=== PATIENT | female | born 1955 | race Caucasian/White ===

== ENCOUNTER → 2019-04-30 09:38 | Outpatient (CLI) | payer BC ==
[2013-07-10 06:23] VITALS: BMI 27.4
--- NOTE | ~2019-04-30 | ST ---
PATIENT:MINISTERIO SERRANO MEDICAL RECORD: [id number] SEX: F LOCATION:[facility] ORDER #: ADMISSION DATE: 04/30/19 AGE OF PATIENT: 63 REFERRING PHYSICIAN: INTERPRETING PHYSICIAN: MEHUL REINOSO MD DATE OF SERVICE: 04/30/2019 PROCEDURE: Nuclear stress test. INDICATION: Angina, syncope, shortness of breath, hypertension, and hyperlipidemia. She was exercised on standard Lexiscan protocol with 32 mCi of sestamibi injected at peak stress, 11 mCi used previously for rest images. FINDINGS: Gated SPECT reveals preserved ejection fraction at 65% with good wall motion and thickening and brightening throughout all segments. SPECT imaging Cardiolite was used as myocardial fusion agent. There is homogeneous uptake throughout all segments at rest and stress with no evidence of inducible ischemia or previous infarction. OVERALL IMPRESSION: 1. This is a normal nuclear stress test with no evidence of inducible ischemia or previous infarction. 2. Gated SPECT reveals a preserved ejection fraction at 65%. In this patient with ongoing symptomatology, the current scan does not suggest the presence of hemodynamically significant coronary artery disease. Evaluate noncardiac etiology of chest pain. TRANSINT:[id number] Voice Confirmation ID: [id number] DOCUMENT ID: [id number] MEHUL REINOSO MD CC: VITALY HUI [id number] DICTATION DATE: 05/01/19 1125 MATHEMATICAL SCIENCES PROFESSOR: 05/02/19 0416 DEP CLI 04/30/[address] [id number]
[~2019-04-30 09:38] MED LIST: FLOMAX0.4 MG PO; ISOPTIN SR240 MG PO; ZOLOFT100 MG PO
== END | disposition home or self-care (01) ==
LOC: D.HCCARDIO 09:38
PROVIDERS: ATTEND Internal Medicine Interventional Cardiology
DX: R07.9 Chest pain, unspecified (principal)